=== PATIENT | female | born 1945 | race Caucasian/White ===

== ENCOUNTER 2017-01-11 16:48 | Observation (INO) | payer OTHER, BC ==
[~2017-01-11] VITALS: Ht 154.9 cm; Wt 78.0 kg
[2017-01-11 17:12] LABS: HEMATOCRIT 42.1 % (36.0-46.0); MCH 31.9 PG (29.0-34.0); MEAN PLAT.VOLUME 10.3 uM^3 (9.5-12.4); PLATELET COUNT 236 K/uL (156-360); RBC DIS.WIDTH-CV 12.1 % (11.8-14.6); RBC DIS.WIDTH-SD 42.2 % (39-53); RED BLOOD COUNT 4.48 M/uL (3.80-5.20); WHITE BLOOD COUNT 7.6 K/uL (4.1-10.2)
[2017-01-11 17:26] LABS: CHLORIDE 102 mEq/L (99-109); POTASSIUM 3.9 mEq/L (3.7-5.4); SODIUM 136 mEq/L (136-147)
[2017-01-11 17:28] LABS: GLUCOSE 115 mg/dL (70-99)
[2017-01-11 17:29] LABS: ANION GAP 12 MEQ/L (2-14)
[2017-01-11 17:32] LABS: GFR ESTIMATE (CALCULATED) 58 mL/min/
[2017-01-11 17:33] LABS: UREA NITROGEN (BUN) 17 mg/dL (9-23)
[2017-01-11] MEDS ORDERED: ESCITALOPRAM OX10 MG PO (20:53)
[2017-01-11] MEDS ORDERED: SIMVASTATIN40 MG PO (20:53)
[2017-01-11] MEDS ORDERED: MIRTAZAPINE15 MG PO (20:53)
[2017-01-11] MEDS ORDERED: FISH OIL 1,2001 EAC4 PO (20:54)
[2017-01-11] MEDS ORDERED: CINNAMON500 MG PO (20:55)
[2017-01-11] MEDS ORDERED: CENTRUM SILVER1 EAC4 PO (20:56)
[2017-01-11] MEDS ORDERED: VITAMIN E400 UNIT PO (20:56)
[2017-01-11] MEDS ORDERED: CALCIUM 600 +1 EAC9 PO (20:58)
[2017-01-11 23:51] VITALS: BP 133/69
[2017-01-12 04:12] VITALS: BP 123/68
[2017-01-12 06:04] LABS: HDL CHOLESTEROL 54 MG/DL (Desirable>=50); LDL CHOLESTEROL 90 mg/dL (Desirable<100); NON-HDL CHOLESTEROL 102 mg/dL (Desirable<160); TOTAL CHOLESTEROL 156 mg/dL (Desirable<200); TRIGLYCERIDES 61 MG/DL (Normal: <150)
[2017-01-12 06:56] LABS: Estimated Average Glucose 126 mg/dL (70-123)
[2017-01-12 07:19] VITALS: BP 123/64
[2017-01-12 11:14] VITALS: BP 119/65
[2017-01-12] MEDS ORDERED: ASPIR-LOW81 MG PO (14:52)
[2017-01-12 15:55] VITALS: BP 135/75
[2017-01-12] MEDS ORDERED: CLOPIDOGREL75 MG PO (16:45)
== END 2017-01-12 18:14 | disposition home or self-care (01) ==
LOC: EME 16:48 → EDOF 21:01 → 5WEST 21:01 → EDOF 21:01 → 5WEST 23:20
PROVIDERS: Physician Assistant Medical
DX: I63.9 Cerebral infarction, unspecified (principal); R47.01 Aphasia; I12.9 Hypertensive chronic kidney disease with stage 1 through stage 4 chronic kidney disease, or unspecified chronic kidney disease; N18.3 Chronic kidney disease, stage 3 (moderate); E78.5 Hyperlipidemia, unspecified; Z86.73 Personal history of transient ischemic attack (TIA), and cerebral infarction without residual deficits
CPT/HCPCS: 70450; 70551; 71020; 80048; 80061; 83036; 85027; 93005; 93306; 93880; 99281; 99285; G0378; J1644

== ENCOUNTER 2017-03-18 12:04 | Emergency (ER) | payer OTHER, BC ==
[~2017-03-18] VITALS: Ht 157.5 cm; Wt 76.1 kg
[~2017-03-18 12:04] MED LIST: ASPIR-LOW81 MG PO; CALCIUM 600 +1 EAC9 PO; CENTRUM SILVER1 EAC4 PO; CINNAMON500 MG PO; CLOPIDOGREL75 MG PO; ESCITALOPRAM OX10 MG PO; FISH OIL 1,2001 EAC4 PO; MIRTAZAPINE15 MG PO; SIMVASTATIN40 MG PO; VITAMIN E400 UNIT PO
[2017-03-18 14:08] LABS: HEMATOCRIT 43.4 % (36.0-46.0); MCHC 33.9 G/DL (30.0-36.0); MCV 94.3 FL (83-99); PLATELET COUNT 229 K/uL (156-360); RBC DIS.WIDTH-CV 12.2 % (11.8-14.6); RBC DIS.WIDTH-SD 42.2 % (39-53); WHITE BLOOD COUNT 8.5 K/uL (4.1-10.2)
[2017-03-18 14:20] LABS: CHLORIDE 100 mEq/L (99-109); POTASSIUM 4.1 mEq/L (3.7-5.4); SODIUM 136 mEq/L (136-147)
[2017-03-18 14:22] LABS: GLUCOSE 123 mg/dL (70-99)
[2017-03-18 14:23] LABS: ANION GAP 12 MEQ/L (2-14)
[2017-03-18 14:26] LABS: GFR ESTIMATE (CALCULATED) > 59 mL/min/
[2017-03-18 14:27] LABS: UREA NITROGEN (BUN) 12 mg/dL (9-23)
[2017-03-18] MEDS ORDERED: BUSPAR7.5 MG PO (15:13)
[2017-03-18 17:13] VITALS: BP 157/85
== END 2017-03-18 17:33 | disposition home or self-care (01) ==
LOC: EME 12:04
PROVIDERS: Emergency Medicine
DX: R25.2 Cramp and spasm (principal); M79.1 Myalgia; E78.5 Hyperlipidemia, unspecified; Z86.73 Personal history of transient ischemic attack (TIA), and cerebral infarction without residual deficits
CPT/HCPCS: 70450; 80048; 85027; 93971; 99281; 99284

== ENCOUNTER 2018-01-15 22:06 | Inpatient (IN) | payer OTHER, BC ==
[~2018-01-15] VITALS: Ht 157.5 cm; Wt 76.2 kg
[~2018-01-15 22:06] MED LIST changes: +APPLE CIDER VI300 MG PO; +BUSPAR7.5 MG PO; +OMEPRAZOLE40 M1 PO; +REMERON15 M2 PO; +ULTRAM50 MG PO
[2018-01-16 06:16] VITALS: BP 142/65
[2018-01-16 14:30] VITALS: BP 129/57
[2018-01-16 20:26] VITALS: BP 143/65
[2018-01-16 23:47] VITALS: BP 122/58
[2018-01-17 03:52] VITALS: BP 123/58
[2018-01-17 07:03] LABS: BASOPHIL (%) 0.3 % (0-1); EOSINOPHIL (%) 0.5 % (0-5); EOSINOPHIL COUNT 0.1 K/uL (0-0.3); HEMATOCRIT 35.2 % (36.0-46.0); IMMATURE GRANULOCYTE (%) 0.3 % (0.0-0.7); LYMPHOCYTE (%) 13.3 % (15-42); LYMPHOCYTE COUNT 1.5 K/uL (1.0-2.8); MCH 31.9 PG (29.0-34.0); MCHC 33.5 G/DL (30.0-36.0); MCV 95.1 FL (83-99); MONOCYTE (%) 8.4 % (3-12); NEUTROPHIL (%) 77.2 % (45-76); NEUTROPHIL COUNT 8.8 K/uL (1.8-6.4); PLATELET COUNT 189 K/uL (156-360); RBC DIS.WIDTH-CV 12.4 % (11.8-14.6); RBC DIS.WIDTH-SD 43.2 % (39-53); WHITE BLOOD COUNT 11.4 K/uL (4.1-10.2)
[2018-01-17 07:04] LABS: HEMOGLOBIN 11.8 G/DL (11.9-15.5)
[2018-01-17 07:31] LABS: CHLORIDE 98 MEQ/L (99-109); CREATININE 0.7 MG/DL (0.6-1.3); GFR ESTIMATE (CALCULATED) > 59 mL/min/; GLUCOSE 139 mg/dL (70-99); SODIUM 133 MEQ/L (136-147); UREA NITROGEN (BUN) 7 mg/dL (9-23)
[2018-01-17 07:51] VITALS: BP 143/64
[2018-01-17 12:00] VITALS: BP 135/65
[2018-01-17 16:12] VITALS: BP 128/64
[2018-01-17 19:18] VITALS: BP 135/68
[2018-01-17 23:46] VITALS: BP 122/66
[2018-01-18 03:44] VITALS: BP 132/60
[2018-01-18 06:32] LABS: BASOPHIL (%) 0.5 % (0-1); BASOPHIL COUNT 0.1 K/uL (0-0.1); EOSINOPHIL (%) 3.5 % (0-5); EOSINOPHIL COUNT 0.4 K/uL (0-0.3); HEMATOCRIT 33.7 % (36.0-46.0); HEMOGLOBIN 11.5 G/DL (11.9-15.5); IMMATURE GRANULOCYTE (%) 0.4 % (0.0-0.7); LYMPHOCYTE (%) 10.7 % (15-42); LYMPHOCYTE COUNT 1.1 K/uL (1.0-2.8); MCH 32.8 PG (29.0-34.0); MCHC 34.1 G/DL (30.0-36.0); MONOCYTE (%) 7.4 % (3-12); MONOCYTE COUNT 0.8 K/uL (0-0.8); NEUTROPHIL (%) 77.5 % (45-76); PLATELET COUNT 174 K/uL (156-360); RBC DIS.WIDTH-CV 12.7 % (11.8-14.6); RBC DIS.WIDTH-SD 44.7 % (39-53); RED BLOOD COUNT 3.51 M/uL (3.80-5.20); WHITE BLOOD COUNT 10.3 K/uL (4.1-10.2)
[2018-01-18 06:55] LABS: CHLORIDE 99 MEQ/L (99-109); CREATININE 0.8 MG/DL (0.6-1.3); GFR ESTIMATE (CALCULATED) > 59 mL/min/; GLUCOSE 133 mg/dL (70-99); POTASSIUM 4.1 MEQ/L (3.7-5.4); SODIUM 134 MEQ/L (136-147); UREA NITROGEN (BUN) 9 mg/dL (9-23)
[2018-01-18 07:09] VITALS: BP 130/60
== END 2018-01-18 16:12 | disposition home or self-care (01) | DRG 743 ==
LOC: ENRESERV 22:06 → 2SOUTH 01-16 05:41 → EDSTATUS 01-16 09:49 → 2SOUTH 01-16 09:50 → ENRESERV 01-16 11:11 → 2EAST 01-16 13:24 → SDC 01-16 15:45 → ENPENDDIS 01-18 16:00 → 2EAST 01-18 16:12
PROVIDERS: Obstetrics & Gynecology Gynecology
DX: N81.4 Uterovaginal prolapse, unspecified (principal); N81.6 Rectocele; N95.2 Postmenopausal atrophic vaginitis; E78.5 Hyperlipidemia, unspecified; N81.3 Complete uterovaginal prolapse; F41.1 Generalized anxiety disorder; E66.9 Obesity, unspecified; Z88.2 Allergy status to sulfonamides; Z79.01 Long term (current) use of anticoagulants; Z68.30 Body mass index [BMI] 30.0-30.9, adult
CPT/HCPCS: 80048; 85025; 87086; 88307; 94799; C1781; J0131; J0690; J1100; J1650; J1885; J2001; J2310; J2405; J2710; J2795; J3010; J3475; J7120; J7643; Q0175